=== PATIENT | male | born 1990 | race Caucasian/White ===

== ENCOUNTER 2022-06-02 11:54 | Emergency (ER) | payer OTHER, SELFPAY ==
--- NOTE | ~2022-06-02 | CT_ITS ---
EXAMINATION: CT ABDOMEN AND PELVIS WITHOUT CONTRAST CLINICAL INFORMATION: Left lower quadrant abdominal pain, nausea and vomiting. Left flank pain. Rule out kidney stones COMPARISON: None TECHNIQUE: Multidetector volumetric imaging was performed from the superior aspect of the liver through the pubic symphysis. Sagittal and coronal reformatted images were obtained on the technologist's workstation. This CT examination was performed using dose optimization techniques as appropriate, variously including the following: *Automated exposure control *Adjustment of mA and/or kV according to patient size (this includes techniques or standardized protocols for targeted exams where dose is matched to indication/reason for exam; i.e. extremities or head) *Use of iterative reconstruction technique DLP: 487 mGy-cm FINDINGS: LUNG BASES: Calcified granuloma seen at the right lung base as well as scarring at the right lung base. LIVER, GALLBLADDER, AND BILIARY TREE: The liver is normal in size, shape, and attenuation. No focal hepatic lesion or biliary ductal dilatation is present. The gallbladder is unremarkable with no evidence of radiopaque gallstones, gallbladder wall thickening, or obvious pericholecystic inflammatory changes. PANCREAS: Unremarkable. SPLEEN: Unremarkable. ADRENAL GLANDS: Unremarkable. KIDNEYS AND URETERS: Right kidney is unremarkable. There is mild hydroureteronephrosis on the left secondary to obstruction of proximal left ureter by 0.3 x 0.4 cm stone, visualized on image 37 series 3 BLADDER: Unremarkable. GASTROINTESTINAL TRACT: The small and large bowel are unremarkable. The appendix is unremarkable, retrocecal. ABDOMINAL WALL: No significant hernia is appreciated. LYMPH NODES: Normal. VASCULAR: Unremarkable PELVIC VISCERA: Unremarkable. OSSEOUS STRUCTURES: There is mild dextroscoliosis and straightening of lumbar lordosis CT/CT abdomen pelvis wo IV con IMPRESSION: 1. Obstructing stone in proximal left ureter with mild hydroureteronephrosis. 2. Calcified granuloma at the right lung base and scarring at the right lung base. Fleischner guidelines were followed.
[2022-06-02 12:09] VITALS: BP 148/64; PULSE 59; RESP 16; TEMP 37; O2SAT 98; BMI 27.4
[2022-06-02 12:37] LABS: MANUAL DIFF FLAG NO
[2022-06-02 12:42] LABS: Basophils Percent Auto 0.3 % (0-2); Eosinophils Absolute Auto 0.4 X10*3/uL (0.0-0.4); Eosinophils Percent Auto 3.4 % (0-4); Hematocrit 41.9 % (42.0-52.0); Hemoglobin 14.2 g/dl (14.0-18.0); Imm Gran Abs Auto 0.03 X10*3/uL (0.00-0.03); Imm Gran Pct Auto 0.3 % (0.0-0.4); Lymphocytes Absolute Auto 2.7 X10*3/uL (1.2-4.9); Lymphocytes Percent Auto 26.6 % (20-40); Mean Corpuscular HGB Conc 33.9 g/dl (31.0-36.0); Mean Corpuscular Hemoglobin 29.4 pg (27.0-33.0); Mean Corpuscular Volume 86.7 fL (80.0-98.0); Monocytes Absolute Auto 0.9 X10*3/uL (0.1-1.2); Monocytes Percent Auto 8.4 % (2-11); Neutrophils Absolute Auto 6.2 x10*3/uL (2.0-8.3); Platelet Count 291 X10*3/uL (160-400); Red Blood Count 4.83 X10*6/uL (4.60-5.80); White Blood Count 10.2 X10*3/uL (4.8-10.8)
[2022-06-02 13:04] LABS: Alanine Aminotransferase 36 U/L (0-40); Albumin Level 4.6 g/dL (3.5-5.0); Alkaline Phosphatase 78 U/L (39-117); Anion Gap 16 (12-20); Aspartate Amino Transferase 45 U/L (5-37); Bilirubin Total 1.2 mg/dL (0.0-1.0); Blood Urea Nitrogen 21 mg/dL (9-16); Calcium 9.6 mg/dL (8.4-10.2); Carbon Dioxide 28 mmol/L (22-29); Chloride 101 mmol/L (96-108); Creatinine Clr Calc Pharmacy 104.9; Estimated Glomerular Filt Rate > 60; Glucose Random 134 mg/dL (60-115); Lipase 32 U/L (8-78); Sodium 140 mmol/L (135-145); Total Protein 7.1 g/dL (6.5-8.0)
[2022-06-02] MEDS: Ondansetron ODT 4 MG TAB.RAPDIS TRANSLINGU (13:29)
--- NOTE | 2022-06-02 13:54 | ED_ITS ---
HPI - Abdominal Pain General Chief Complaint: Abdominal Pain Stated Complaint: Abd pain Time Seen by Provider: 06/02/22 14:21 Related Data Previous Rx's Medication Instructions Recorded oxycodone-acetaminophen 5 mg-325 1 - 2 tab PO Q4H PRN pain, 06/02/22 mg tablet (Percocet) moderate #10 tabs oxycodone 5 mg tablet 5 mg PO Q6H PRN pain #20 tabs 06/04/22 tamsulosin 0.4 mg capsule (Flomax) 0.4 mg PO BEDTIME #7 caps 06/04/22 prednisone 20 mg tablet 20 mg PO DAILY 5 days #5 tabs 06/05/22 Allergies Allergy/AdvReac Type Severity Reaction Status Date / Time No Known Allergies Allergy Verified 06/02/22 12:12 Physical Exam ED Vital Signs: Vital Signs - 24 hr 06/02/22 12:09 Temperature 98.6 F Pulse Rate 59 Respiratory Rate 16 Blood Pressure 148/64 H Pulse Oximetry 98 Oxygen Delivery Method Room Air BMI result Body Mass Index 27.4 Course Reevaluation(s) Reevaluation #1: 32yoM presenting to the ED c c/o of LLQ abd pain c associated gen weakness/nausea and fatigue. Denies ETOH usage or HLD. - Labs reviewed elevated Long. Otherwise all other labs WNL. - Plan: Will obtain CT scan abd/pelvis without IV contrast. Pt back to [facility]. Pt stable. Time: 13:54 Medications Administered Discontinued Medications Generic Name Dose Route Start Last Admin Trade Name Freq PRN Reason Stop Dose Admin Ketorolac Tromethamine 15 mg 06/02/22 14:41 06/02/22 14:45 Ketorolac Tromethamine 15 Mg/Ml Vial IVPUSH 06/02/22 14:42 15 mg ONCE ONE Administration Morphine Sulfate 2 mg 06/02/22 14:41 06/02/22 14:44 Morphine Sulfate 2 Mg/Ml Cartridge IVPUSH 06/02/22 14:42 2 mg ONCE ONE Administration Protocol Morphine Sulfate 4 mg 06/02/22 16:43 06/02/22 17:00 Morphine Sulfate 4 Mg/Ml Cartridge IVPUSH 06/02/22 16:44 4 mg ONCE ONE Administration Protocol Ondansetron HCl 4 mg 06/02/22 13:23 06/02/22 13:29 Ondansetron Odt 4 Mg Tab.Rapdis TRANSLINGU 06/02/22 13:24 4 mg ONCE ONE Administration Oxycodone HCl 10 mg 06/02/22 21:59 06/02/22 22:04 Oxycodone Hcl Immed Release 5 Mg Tablet PO 06/02/22 22:00 10 mg ONCE ONE Administration MDM - Abdominal Pain Lab Data Result diagrams: 06/02/22 12:33 06/02/22 12:33 Labs: Lab Results 06/02/22 06/02/22 06/02/22 Range/Units 12:33 12:33 18:11 WBC 10.2 (4.8-10.8) X10*3/uL RBC 4.83 (4.60-5.80) X10*6/uL Hgb 14.2 (14.0-18.0) g/dl Hct 41.9 L (42.0-52.0) % MCV 86.7 (80.0-98.0) fL MCH 29.4 (27.0-33.0) pg MCHC 33.9 (31.0-36.0) g/dl RDW 12.0 (11.0-16.0) % Plt Count 291 (160-400) X10*3/uL MPV 10.0 (9.4-12.4) fL Immature Gran % (Auto) 0.3 (0.0-0.4) % Neut % (Auto) 61.0 (45-73) % Lymph % (Auto) 26.6 (20-40) % [place] % (Auto) 8.4 (2-11) % Eos % (Auto) 3.4 (0-4) % Baso % (Auto) 0.3 (0-2) % Lymph # (Auto) 2.7 (1.2-4.9) X10*3/uL [place] # (Auto) 0.9 (0.1-1.2) X10*3/uL Eos # (Auto) 0.4 (0.0-0.4) X10*3/uL Baso # (Auto) 0.0 (0.0-0.2) X10*3/uL Abs Immat Gran (auto) 0.03 (0.00-0.03) X10*3/uL Absolute Neuts (auto) 6.2 (2.0-8.3) x10*3/uL Absolute Nucleated RBC 0.000 (0.0-0.012) X10*3/uL Nucleated RBC % (auto) 0.0 (0.0-0.2) /100WBC Sodium 140 (135-145) mmol/L Potassium 5.0 (3.3-5.1) mmol/L Chloride 101 (96-108) mmol/L Carbon Dioxide 28 (22-29) mmol/L Anion Gap 16 (12-20) BUN 21 H (9-16) mg/dL Creatinine 0.97 (0.5-1.4) mg/dL Estim Creat Clear Calc 104.9 Estimated GFR > 60 Random Glucose 134 H (60-115) mg/dL Calcium 9.6 (8.4-10.2) mg/dL Magnesium 1.8 (1.6-2.6) mg/dL Total Bilirubin 1.2 H (0.0-1.0) mg/dL AST 45 H (5-37) U/L ALT 36 (0-40) U/L Alkaline Phosphatase 78 (39-117) U/L Total Protein 7.1 (6.5-8.0) g/dL Albumin 4.6 (3.5-5.0) g/dL Lipase 32 (8-78) U/L Urine Color Dark Yellow Urine Appearance Clear Urine pH 6.5 (5.0-9.0) Ur Specific [place] 1.020 (1.005-1.025) Urine Protein 30 (1+) H (Neg-Trace) mg/dL Urine Glucose (UA) Negative (Negative) mg/dL Urine Ketones 15 (Negative) mg/dL Urine Blood Large (3+) H (Negative) Urine Nitrite Negative (Negative) Ur Leukocyte Esterase Trace H (Negative) Urine RBC >20 H (0-2) /HPF Urine WBC 0-5 (0-5) /HPF Ur Squamous Epith Cells 0-2 (0-2) /HPF Urine Bacteria None Seen (None Seen) Hyaline Casts 0-2 (0-2) /LPF Urine Opiates Screen (Not Detect) Urine Fentanyl Screen (Not Detect) Ur Barbiturates Screen (Not Detect) Ur Phencyclidine Scrn (Not Detect) Ur Amphetamines Screen (Not Detect) U Benzodiazepines Scrn (Not Detect) Urine Cocaine Screen (Not Detect) U Marijuana (THC) Screen (Not Detect) 06/02/22 Range/Units 18:11 WBC (4.8-10.8) X10*3/uL RBC (4.60-5.80) X10*6/uL Hgb (14.0-18.0) g/dl Hct (42.0-52.0) % MCV (80.0-98.0) fL MCH (27.0-33.0) pg MCHC (31.0-36.0) g/dl RDW (11.0-16.0) % Plt Count (160-400) X10*3/uL MPV (9.4-12.4) fL Immature Gran % (Auto) (0.0-0.4) % Neut % (Auto) (45-73) % Lymph % (Auto) (20-40) % [place] % (Auto) (2-11) % Eos % (Auto) (0-4) % Baso % (Auto) (0-2) % Lymph # (Auto) (1.2-4.9) X10*3/uL [place] # (Auto) (0.1-1.2) X10*3/uL Eos # (Auto) (0.0-0.4) X10*3/uL Baso # (Auto) (0.0-0.2) X10*3/uL Abs Immat Gran (auto) (0.00-0.03) X10*3/uL Absolute Neuts (auto) (2.0-8.3) x10*3/uL Absolute Nucleated RBC (0.0-0.012) X10*3/uL Nucleated RBC % (auto) (0.0-0.2) /100WBC Sodium (135-145) mmol/L Potassium (3.3-5.1) mmol/L Chloride (96-108) mmol/L Carbon Dioxide (22-29) mmol/L Anion Gap (12-20) BUN (9-16) mg/dL Creatinine (0.5-1.4) mg/dL Estim Creat Clear Calc Estimated GFR Random Glucose (60-115) mg/dL Calcium (8.4-10.2) mg/dL Magnesium (1.6-2.6) mg/dL Total Bilirubin (0.0-1.0) mg/dL AST (5-37) U/L ALT (0-40) U/L Alkaline Phosphatase (39-117) U/L Total Protein (6.5-8.0) g/dL Albumin (3.5-5.0) g/dL Lipase (8-78) U/L Urine Color Urine Appearance Urine pH (5.0-9.0) Ur Specific [place] (1.005-1.025) Urine Protein (Neg-Trace) mg/dL Urine Glucose (UA) (Negative) mg/dL Urine Ketones (Negative) mg/dL Urine Blood (Negative) Urine Nitrite (Negative) Ur Leukocyte Esterase (Negative) Urine RBC (0-2) /HPF Urine WBC (0-5) /HPF Ur Squamous Epith Cells (0-2) /HPF Urine Bacteria (None Seen) Hyaline Casts (0-2) /LPF Urine Opiates Screen POSITIVE H (Not Detect) Urine Fentanyl Screen Not Detected (Not Detect) Ur Barbiturates Screen Not Detected (Not Detect) Ur Phencyclidine Scrn Not Detected (Not Detect) Ur Amphetamines Screen Not Detected (Not Detect) U Benzodiazepines Scrn Not Detected (Not Detect) Urine Cocaine Screen Not Detected (Not Detect) U Marijuana (THC) Screen Not Detected (Not Detect) Discharge Plan Discharge Clinical Impression: Acute flank pain, Calculus, ureteral Patient Disposition: Home, Self-Care Instructions: How to Strain Your Urine (ED), Ureteral Stones (ED) Additional Instructions: may take ibuprofen 600 mg. every 6 hours. Prescriptions: New oxycodone-acetaminophen [Percocet] 5-325 mg tablet 1 - 2 tab PO Q4H PRN (Reason: pain, moderate) Qty: 10 0RF Rx Instructions: Partial Fill upon patient request. No Action prednisone 20 mg tablet 20 mg PO DAILY 5 Days Qty: 5 0RF oxycodone 5 mg tablet 5 mg PO Q6H PRN (Reason: pain) Qty: 20 0RF Rx Instructions: Partial Fill upon patient request. tamsulosin [Flomax] 0.4 mg capsule 0.4 mg PO BEDTIME Qty: 7 0RF Interventions: ED Discharge Assessment Last Done: 06/02/22 22:22 Discharge Date/Time: 06/02/22 22:05
[2022-06-02 14:32] LABS: Magnesium 1.8 mg/dL (1.6-2.6)
--- NOTE | 2022-06-02 14:43 | ED_ITS ---
HPI - Abdominal Pain General Chief Complaint: Abdominal Pain Stated Complaint: Abd pain Time Seen by Provider: 06/02/22 14:21 Source: patient Mode of arrival: ambulatory Limitations: no limitations History of Present Illness HPI narrative: 32-year-old male came in for evaluation of left-sided abdominal pain. Left-sided abdominal pain started since 10:00, pain is described as constant severe 10/10, pain is localized to the left side of the abdomen radiated to the left flank, no aggravating factor, no relieving factor, no fever, no chills, patient did not urinate since morning. No fever, no chills Related Data Allergies Allergy/AdvReac Type Severity Reaction Status Date / Time No Known Allergies Allergy Verified 06/02/22 12:12 Review of Systems Review of Systems All other systems are reviewed and are negative Constitutional: Reports as per HPI and Reports no additional constitutional complaints Eyes: Reports as per HPI and Reports no additional eye complaints Reports system reviewed and no additional complaints, except as documented Cardiovascular: Reports as per HPI and Reports no additional cardiovascular complaints Respiratory: Reports as per HPI and Reports no additional respiratory complaints Gastrointestinal: Reports as per HPI and Reports no additional gastrointestinal complaints Genitourinary: Reports no additional female genitourinary complaints Musculoskeletal: Reports no additional musculoskeletal complaints Skin/Breast: Reports system reviewed and no additional complaints, except as docu Psychiatric: Reports no additional psychiatric complaints Endocrine: Reports no additional endocrine complaints Hematologic/Lymphatic: Reports no additional hematologic/lymphatic complaints Allergic/Immunologic: Reports no additional allergic/immunologic complaints Reports system reviewed and no additional complaints, except as documented and Reports Abnormal speech present [facility] Social History Social History Smoked in Last 30 Days: No Advance Directives: No Advance Directives Information Provided: No Physical Exam ED Vital Signs: Vital Signs - 24 hr 06/02/22 12:09 Temperature 98.6 F Pulse Rate 59 Respiratory Rate 16 Blood Pressure 148/64 H Pulse Oximetry 98 Oxygen Delivery Method Room Air BMI result Body Mass Index 27.4 Vital signs have been reviewed as appeared to be correct. Blood pressure normal. Heart rate normal. Respiration rate normal. Temperature normal. Oxygen saturation normal. Appearance: Alert. Oriented X3. No acute distress. Head: Normal external exam. Normocephalic. Atraumatic. No Yi signs noted. No raccoon eyes noted Eyes: PERRLA. EOMI. Conjunctiva and sclera normal. Eyelids normal. ENT: TM's Normal. Pharynx normal. Uvula midline. Moist mucous membranes. No trismus noted. No drooling noted. No muffled voice noted. Neck: Normal inspection. Neck supple. FROM. No adenopathy. Thyroid Normal. No meningeal signs. No neck mass noted. CVS: Normal heart rate and rhythm. Heart sound normal. No murmurs noted. Pulses normal throughout. Respiratory: No respiratory distress. Painless inspiration. Breath sounds normal. No wheezes/rales/rhonchi noted. Chest nontender. No accessory muscle usage noted or decreased air movement noted. Abdomen: Soft, left abdominal tenderness, no guarding, no rebound tenderness.. Bowel sounds normal in all 4 quadrants. No distention noted. No organomegaly noted. No visible injury noted. Back: Left CVA tenderness. Full range of motion noted. Skin: Skin warm and dry. Normal skin color. Normal skin turgor. No ra shes/lesions/lacerations noted. Extremities: No lower extremity edema. Extremities exhibit normal range of motion. Extremities nontender. Neuro: Oriented X 3. Cranial nerve exam: II-XII are grossly intact No motor deficit. No sensory deficit. Reflexes normal. Course Course Course Narrative: left flank pain, CT is pending case signed out to Dr. Matt to check CT and UA then dispo accordingly. Medications Administered Discontinued Medications Generic Name Dose Route Start Last Admin Trade Name Freq PRN Reason Stop Dose Admin Ketorolac Tromethamine 15 mg 06/02/22 14:41 06/02/22 14:45 Ketorolac Tromethamine 15 Mg/Ml Vial IVPUSH 06/02/22 14:42 15 mg ONCE ONE Administration Morphine Sulfate 2 mg 06/02/22 14:41 06/02/22 14:44 Morphine Sulfate 2 Mg/Ml Cartridge IVPUSH 06/02/22 14:42 2 mg ONCE ONE Administration Protocol Ondansetron HCl 4 mg 06/02/22 13:23 06/02/22 13:29 Ondansetron Odt 4 Mg Tab.Rapdis TRANSLINGU 06/02/22 13:24 4 mg ONCE ONE Administration MDM - Abdominal Pain Lab Data Result diagrams: 06/02/22 12:33 06/02/22 12:33 Labs: Lab Results 06/02/22 06/02/22 Range/Units 12:33 12:33 WBC 10.2 (4.8-10.8) X10*3/uL RBC 4.83 (4.60-5.80) X10*6/uL Hgb 14.2 (14.0-18.0) g/dl Hct 41.9 L (42.0-52.0) % MCV 86.7 (80.0-98.0) fL MCH 29.4 (27.0-33.0) pg MCHC 33.9 (31.0-36.0) g/dl RDW 12.0 (11.0-16.0) % Plt Count 291 (160-400) X10*3/uL MPV 10.0 (9.4-12.4) fL Immature Gran % (Auto) 0.3 (0.0-0.4) % Neut % (Auto) 61.0 (45-73) % Lymph % (Auto) 26.6 (20-40) % [place] % (Auto) 8.4 (2-11) % Eos % (Auto) 3.4 (0-4) % Baso % (Auto) 0.3 (0-2) % Lymph # (Auto) 2.7 (1.2-4.9) X10*3/uL [place] # (Auto) 0.9 (0.1-1.2) X10*3/uL Eos # (Auto) 0.4 (0.0-0.4) X10*3/uL Baso # (Auto) 0.0 (0.0-0.2) X10*3/uL Abs Immat Gran (auto) 0.03 (0.00-0.03) X10*3/uL Absolute Neuts (auto) 6.2 (2.0-8.3) x10*3/uL Absolute Nucleated RBC 0.000 (0.0-0.012) X10*3/uL Nucleated RBC % (auto) 0.0 (0.0-0.2) /100WBC Sodium 140 (135-145) mmol/L Potassium 5.0 (3.3-5.1) mmol/L Chloride 101 (96-108) mmol/L Carbon Dioxide 28 (22-29) mmol/L Anion Gap 16 (12-20) BUN 21 H (9-16) mg/dL Creatinine 0.97 (0.5-1.4) mg/dL Estim Creat Clear Calc 104.9 Estimated GFR > 60 Random Glucose 134 H (60-115) mg/dL Calcium 9.6 (8.4-10.2) mg/dL Magnesium 1.8 (1.6-2.6) mg/dL Total Bilirubin 1.2 H (0.0-1.0) mg/dL AST 45 H (5-37) U/L ALT 36 (0-40) U/L Alkaline Phosphatase 78 (39-117) U/L Total Protein 7.1 (6.5-8.0) g/dL Albumin 4.6 (3.5-5.0) g/dL Lipase 32 (8-78) U/L Discharge Plan Discharge Clinical Impression: Acute flank pain
[2022-06-02] MEDS: Morphine Sulfate 2 MG/ML CARTRIDGE IVPUSH (14:44)
[2022-06-02] MEDS: Ketorolac Tromethamine 15 MG/ML VIAL IVPUSH (14:45)
--- NOTE | 2022-06-02 14:58 | PC.NURSE ---
patient a/ox4 . maryedwintyrel . heart rate regular at 65 beats minute . lungs clear throughout . skin pink warm and dry . abdomen soft . positive bowel sounds noted in all four quadrant sounds . rebound tenderness noted in left lower , radiating to flank pain level 10 out of 10 that is intermittent. Patient reports that this started at 1030am all of a sudden he felt this pain start . Labs have been sent . IV placed in right A.C . patient has been medicated with morphine and toridal as ordered by provider . patient transported to C.T for images . patient aware of plan of care .
[2022-06-02 17:00] VITALS: RESP 18
[2022-06-02] MEDS: Morphine Sulfate 4 MG/ML CARTRIDGE IVPUSH (17:00)
[2022-06-02 17:01] VITALS: BP 151/68; PULSE 72; RESP 16; TEMP 36.9; O2SAT 98
--- NOTE | 2022-06-02 17:09 | PC.NURSE ---
patient reports pain level of 10 out of 10 in left abdomen / flank area obtained order from Dr. Matt for PRN of 4mg Morphin IVP . Patient medicated as ordered by provider . patient aware of plan of care .
--- NOTE | 2022-06-02 18:14 | PC.NURSE ---
Patient reports improvement in abdominal /flank pain after being medicated . Urine obtained and sent . Patient aware of plan of care .
[2022-06-02 18:30] LABS: Amphetamine Screen Urine Not Detected (Not Detect); Barbiturates, Urine Not Detected (Not Detect); Benzodiazepines Screen Urine Not Detected (Not Detect); Cannabinoid Screen Urine Not Detected (Not Detect); Cocaine Screen Urine Not Detected (Not Detect); Fentanyl, urine Not Detected (Not Detect); Opiate Screen Urine POSITIVE (Not Detect); Phencyclidine Screen Urine Not Detected (Not Detect)
[2022-06-02 18:34] LABS: Appearance Urine Clear; Color Urine Dark Yellow; Glucose Urine UA Negative (Negative); Leukocyte Esterase Urine Trace (Negative); Nitrite Urine Negative (Negative); PH 6.5 (5.0-9.0); UMIC TRIGGER UACC YES; Urine Blood Large (3+) (Negative); Urine Ketones 15 mg/dL (Negative); Urine Protein 30 (1+) mg/dL (Neg-Trace)
[2022-06-02 19:00] LABS: Bacteria Urine None Seen (None Seen); Hyaline Casts Urine 0-2 /LPF (0-2); RBC Urine >20 /HPF (0-2); Squamous Epithelial Cell Urine 0-2 /HPF (0-2); WBC Urine 0-5 /HPF (0-5)
[2022-06-02] MEDS: oxyCODONE HCl Immed Release 5 MG TABLET 10 MG PO (22:04)
== END 2022-06-02 22:05 | disposition home or self-care (01) ==
PROVIDERS: Physician Assistant Medical; Emergency Provider Emergency Medicine
DX: N13.2 Hydronephrosis with renal and ureteral calculous obstruction (principal)
CPT/HCPCS: 36415; 74176; 80053; 80307; 81001; 83690; 83735; 85025; 96374; 96375; 99284; J1885; J2270

== ENCOUNTER 2022-06-04 18:00 | Emergency (ER) | payer OTHER, SELFPAY ==
[2022-06-04 18:43] VITALS: BP 171/65; PULSE 59; RESP 18; TEMP 37.1; O2SAT 99; BMI 27.4
--- NOTE | 2022-06-04 18:43 | ED_ITS ---
HPI - General Adult General Chief complaint: General Medical <Yael Levin MD - Last Filed: 06/04/22 18:49> Stated complaint: kidney stone <Yael Levin MD - Last Filed: 06/04/22 18:49> Time Seen by Provider: 06/04/22 21:53 <Yael Levin MD - Last Filed: 06/04/22 18:49> Source: patient <Ed Guerra MD - Last Filed: 06/04/22 23:55> Mode of arrival: ambulatory <Ed Guerra MD - Last Filed: 06/04/22 23:55> Limitations: no limitations <Ed Guerra MD - Last Filed: 06/04/22 23:55> History of Present Illness HPI narrative: Patient was seen here 2 days ago for left flank pain diagnosis 3 x 4 mm proximal ureteric stone with hydronephrosis comes back as pain is still going on fell nauseated taking oxycodone which he finished patient never had kidney stone before <Ed Guerra MD - Last Filed: 06/04/22 23:55> Related Data Home medications: Previous Rx's Medication Instructions Recorded oxycodone-acetaminophen 5 mg-325 1 - 2 tab PO Q4H PRN pain, 06/02/22 mg tablet (Percocet) moderate #10 tabs oxycodone 5 mg tablet 5 mg PO Q6H PRN pain #20 tabs 06/04/22 tamsulosin 0.4 mg capsule (Flomax) 0.4 mg PO BEDTIME #7 caps 06/04/22 <Yael Levin MD - Last Filed: 06/04/22 18:49> Allergies/adverse reactions: Allergies Allergy/AdvReac Type Severity Reaction Status Date / Time No Known Allergies Allergy Verified 06/02/22 12:12 <Yael Levin MD - Last Filed: 06/04/22 18:49> Review of Systems Review of Systems: Yes all other systems are reviewed and are negative <Ed Guerra MD - Last Filed: 06/04/22 23:55> PMFSH Social History Social History: Social History Advance Directives: No Advance Directives Information Provided: No <Yael Levin MD - Last Filed: 06/04/22 18:49> Physical Exam ED Vital Signs: Vital Signs - 24 hr 06/04/22 18:43 06/04/22 22:22 Temperature 98.8 F 99.1 F Pulse Rate 59 58 Respiratory Rate 18 16 Blood Pressure 171/65 H 121/65 Pulse Oximetry 99 97 Oxygen Delivery Method Room Air Room Air BMI result Body Mass Index 27.4 <Yael Levin MD - Last Filed: 06/04/22 18:49> Vital Signs - 24 hr 06/04/22 18:43 06/04/22 22:22 Temperature 98.8 F 99.1 F Pulse Rate 59 58 Respiratory Rate 18 16 Blood Pressure 171/65 H 121/65 Pulse Oximetry 99 97 Oxygen Delivery Method Room Air Room Air BMI result Body Mass Index 27.4 <Ed Guerra MD - Last Filed: 06/04/22 23:55> Appearance: Alert. Oriented X3. No acute distress. ENT: Pharynx normal. Oral Mucosa moist Neck: Normal inspection. Neck supple. CVS: Normal heart rate and rhythm. Pulses normal. Respiratory: No respiratory distress. Equal air entry bilateral, no wheezing/rales/rhonchi Abdomen: Soft and nontender. Bowel sounds are present, no mass palpable, L CVA tenderness Skin: Skin warm and dry. Normal skin color. Normal skin turgor. Extremities: No lower extremity edema. No calf tenderness Neuro: Oriented X 3. No motor deficit. <Ed Guerra MD - Last Filed: 06/04/22 23:55> Course Course Course Narrative: -triage TAMY: -2 days of kidney stone pain, seen here 2 days ago, ran out of oxycodone, no hematuria, no fever -CT 2 days ago: : KIDNEYS AND URETERS: Right kidney is unremarkable. There is mild hydroureteronephrosis on the left secondary to obstruction of proximal left ureter by 0.3 x 0.4 cm stone -pt did not get rx for Flomax -f/u labs -at this time pt declined pain meds, states he recently took oxycodone <Yael Levin MD - Last Filed: 06/04/22 18:49> Medications Administered Discontinued Medications Generic Name Dose Route Start Last Admin Trade Name Freq PRN Reason Stop Dose Admin Oxycodone HCl 10 mg 11/14/22 22:13 06/04/22 22:35 Oxycodone Hcl Immed Release 5 Mg Tablet PO 06/04/22 22:14 10 mg ONCE ONE Administration Tamsulosin HCl 0.4 mg 06/04/22 22:13 06/04/22 22:32 Tamsulosin Hcl 0.4 Mg Capsule PO 06/04/22 22:14 0.4 mg ONCE ONE Administration <Yael Levin MD - Last Filed: 06/04/22 18:49> Medications Administered Discontinued Medications Generic Name Dose Route Start Last Admin Trade Name Javon PRN Reason Stop Dose Admin Oxycodone HCl 10 mg 06/04/22 22:13 06/04/22 22:35 Oxycodone Hcl Immed Release 5 Mg Tablet PO 06/04/22 22:14 10 mg ONCE ONE Administration Tamsulosin HCl 0.4 mg 06/04/22 22:13 06/04/22 22:32 Tamsulosin Hcl 0.4 Mg Capsule PO 06/04/22 22:14 0.4 mg ONCE ONE Administration <Ed Guerra MD - Last Filed: 06/04/22 23:55> Medical Decision Making [facility] Narrative Medical decision making narrative: Patient with left proximal 3 x 4 mm obstructive stone pain improved at this time will discharge patient home advised to follow up with urologist in a.m. <Ed Guerra MD - Last Filed: 06/04/22 23:55> Lab Data Lab results reviewed: Yes I reviewed the patient's lab results. <Ed Guerra MD - Last Filed: 06/04/22 23:55> Result diagrams: : 06/04/22 21:15 06/04/22 21:15 <Yael Levin MD - Last Filed: 06/04/22 18:49> Labs: Lab Results 06/04/22 06/04/22 06/04/22 Range/Units 18:55 21:15 21:15 WBC 17.3 H (4.8-10.8) X10*3/uL RBC 4.85 (4.60-5.80) X10*6/uL Hgb 14.2 (14.0-18.0) g/dl Hct 42.2 (42.0-52.0) % MCV 87.0 (80.0-98.0) fL MCH 29.3 (27.0-33.0) pg MCHC 33.6 (31.0-36.0) g/dl RDW 11.9 (11.0-16.0) % Plt Count 285 (160-400) X10*3/uL MPV 10.2 (9.4-12.4) fL Immature Gran % (Auto) 0.3 (0.0-0.4) % Neut % (Auto) 78.8 H (45-73) % Lymph % (Auto) 12.1 L (20-40) % [place] % (Auto) 7.9 (2-11) % Eos % (Auto) 0.7 (0-4) % Baso % (Auto) 0.2 (0-2) % Lymph # (Auto) 2.1 (1.2-4.9) X10*3/uL [place] # (Auto) 1.4 H (0.1-1.2) X10*3/uL Eos # (Auto) 0.1 (0.0-0.4) X10*3/uL Baso # (Auto) 0.0 (0.0-0.2) X10*3/uL Abs Immat Gran (auto) 0.05 H (0.00-0.03) X10*3/uL Absolute Neuts (auto) 13.6 H (2.0-8.3) x10*3/uL Absolute Nucleated RBC 0.000 (0.0-0.012) X10*3/uL Nucleated RBC % (auto) 0.0 (0.0-0.2) /100WBC Sodium 139 (135-145) mmol/L Potassium 5.1 (3.3-5.1) mmol/L Chloride 100 (96-108) mmol/L Carbon Dioxide 30 H (22-29) mmol/L Anion Gap 14 (12-20) BUN 12 (9-16) mg/dL Creatinine 1.02 (0.5-1.4) mg/dL Estim Creat Clear Calc 99.7 Estimated GFR > 60 Random Glucose 98 (60-115) mg/dL Calcium 9.9 (8.4-10.2) mg/dL Total Bilirubin 1.6 H (0.0-1.0) mg/dL Direct Bilirubin 0.5 (0.0-0.5) mg/dL AST 24 (5-37) U/L ALT 27 (0-40) U/L Alkaline Phosphatase 66 (39-117) U/L Total Protein 7.3 (6.5-8.0) g/dL Albumin 4.7 (3.5-5.0) g/dL Urine Color Yellow Urine Appearance Clear Urine pH 5.5 (5.0-9.0) Ur Specific Elizabeth <= 1.005 (1.005-1.025) Urine Protein Negative (Neg-Trace) mg/dL Urine Glucose (UA) Negative (Negative) mg/dL Urine Ketones 15 (Negative) mg/dL Urine Blood Small (1+) H (Negative) Urine Nitrite Negative (Negative) Ur Leukocyte Esterase Negative (Negative) Urine RBC 0-2 (0-2) /HPF Urine WBC 0-5 (0-5) /HPF Ur Squamous Epith Cells 0-2 (0-2) /HPF Urine Bacteria Trace (None Seen) Hyaline Casts 0-2 (0-2) /LPF <Yael Levin MD - Last Filed: 06/04/22 18:49> Lab Results 06/04/22 06/04/22 06/04/22 Range/Units 18:55 21:15 21:15 WBC 17.3 H (4.8-10.8) X10*3/uL RBC 4.85 (4.60-5.80) X10*6/uL Hgb 14.2 (14.0-18.0) g/dl Hct 42.2 (42.0-52.0) % MCV 87.0 (80.0-98.0) fL MCH 29.3 (27.0-33.0) pg MCHC 33.6 (31.0-36.0) g/dl RDW 11.9 (11.0-16.0) % Plt Count 285 (160-400) X10*3/uL MPV 10.2 (9.4-12.4) fL Immature Gran % (Auto) 0.3 (0.0-0.4) % Neut % (Auto) 78.8 H (45-73) % Lymph % (Auto) 12.1 L (20-40) % [place] % (Auto) 7.9 (2-11) % Eos % (Auto) 0.7 (0-4) % Baso % (Auto) 0.2 (0-2) % Lymph # (Auto) 2.1 (1.2-4.9) X10*3/uL [place] # (Auto) 1.4 H (0.1-1.2) X10*3/uL Eos # (Auto) 0.1 (0.0-0.4) X10*3/uL Baso # (Auto) 0.0 (0.0-0.2) X10*3/uL Abs Immat Gran (auto) 0.05 H (0.00-0.03) X10*3/uL Absolute Neuts (auto) 13.6 H (2.0-8.3) x10*3/uL Absolute Nucleated RBC 0.000 (0.0-0.012) X10*3/uL Nucleated RBC % (auto) 0.0 (0.0-0.2) /100WBC Sodium 139 (135-145) mmol/L Potassium 5.1 (3.3-5.1) mmol/L Chloride 100 (96-108) mmol/L Carbon Dioxide 30 H (22-29) mmol/L Anion Gap 14 (12-20) BUN 12 (9-16) mg/dL Creatinine 1.02 (0.5-1.4) mg/dL Estim Creat Clear Calc 99.7 Estimated GFR > 60 Random Glucose 98 (60-115) mg/dL Calcium 9.9 (8.4-10.2) mg/dL Total Bilirubin 1.6 H (0.0-1.0) mg/dL Direct Bilirubin 0.5 (0.0-0.5) mg/dL AST 24 (5-37) U/L ALT 27 (0-40) U/L Alkaline Phosphatase 66 (39-117) U/L Total Protein 7.3 (6.5-8.0) g/dL Albumin 4.7 (3.5-5.0) g/dL Urine Color Yellow Urine Appearance Clear Urine pH 5.5 (5.0-9.0) Ur Specific Elizabeth <= 1.005 (1.005-1.025) Urine Protein Negative (Neg-Trace) mg/dL Urine Glucose (UA) Negative (Negative) mg/dL Urine Ketones 15 (Negative) mg/dL Urine Blood Small (1+) H (Negative) Urine Nitrite Negative (Negative) Ur Leukocyte Esterase Negative (Negative) Urine RBC 0-2 (0-2) /HPF Urine WBC 0-5 (0-5) /HPF Ur Squamous Epith Cells 0-2 (0-2) /HPF Urine Bacteria Trace (None Seen) Hyaline Casts 0-2 (0-2) /LPF <Ed Guerra MD - Last Filed: 06/04/22 23:55> Discharge Plan Discharge Clinical Impression: Kidney stone on left side <Yael Levin MD - Last Filed: 06/04/22 18:49> Patient Disposition: Home, Self-Care <Yael Lvein MD - Last Filed: 06/04/22 18:49> Instructions: Kidney Stones (ED) <Yael Levin MD - Last Filed: 06/04/22 18:49> Additional Instructions: Drink plenty of fluids Take pain medication and Flomax to keep the tube open Follow-up with urologist <Yael Levin MD - Last Filed: 06/04/22 18:49> Prescriptions: New oxycodone 5 mg tablet 5 mg PO Q6H PRN (Reason: pain) Qty: 20 0RF Rx Instructions: Partial Fill upon patient request. tamsulosin [Flomax] 0.4 mg capsule 0.4 mg PO BEDTIME Qty: 7 0RF No Action oxycodone-acetaminophen [Percocet] 5-325 mg tablet 1 - 2 tab PO Q4H PRN (Reason: pain, moderate) Qty: 10 0RF Rx Instructions: Partial Fill upon patient request. <Yael Levin MD - Last Filed: 06/04/22 18:49> Referrals: Gavin Mead MD [Physician] - 1 day <Yael Levin MD - Last Filed: 06/04/22 18:49> Interventions: ED Discharge Assessment Last Done: 06/04/22 22:38 <Yael Levin MD - Last Filed: 06/04/22 18:49> Discharge Date/Time: 06/04/22 22:40 <Yael Levin MD - Last Filed: 06/04/22 18:49>
[2022-06-04 19:13] LABS: Appearance Urine Clear; Color Urine Yellow; Glucose Urine UA Negative (Negative); Leukocyte Esterase Urine Negative (Negative); Nitrite Urine Negative (Negative); PH 5.5 (5.0-9.0); Specific Gravity - Urine <= 1.005 (1.005-1.025); UMIC TRIGGER UACC YES; Urine Blood Small (1+) (Negative); Urine Ketones 15 mg/dL (Negative); Urine Protein Negative (Neg-Trace)
[2022-06-04 19:26] LABS: Bacteria Urine Trace (None Seen); Hyaline Casts Urine 0-2 /LPF (0-2); RBC Urine 0-2 /HPF (0-2); Squamous Epithelial Cell Urine 0-2 /HPF (0-2); WBC Urine 0-5 /HPF (0-5)
[2022-06-04 21:20] LABS: MANUAL DIFF FLAG NO
[2022-06-04 21:32] LABS: Basophils Percent Auto 0.2 % (0-2); Eosinophils Absolute Auto 0.1 X10*3/uL (0.0-0.4); Eosinophils Percent Auto 0.7 % (0-4); Hematocrit 42.2 % (42.0-52.0); Hemoglobin 14.2 g/dl (14.0-18.0); Imm Gran Abs Auto 0.05 X10*3/uL (0.00-0.03); Imm Gran Pct Auto 0.3 % (0.0-0.4); Lymphocytes Absolute Auto 2.1 X10*3/uL (1.2-4.9); Lymphocytes Percent Auto 12.1 % (20-40); Mean Corpuscular HGB Conc 33.6 g/dl (31.0-36.0); Mean Corpuscular Hemoglobin 29.3 pg (27.0-33.0); Mean Platelet Volume 10.2 fL (9.4-12.4); Monocytes Absolute Auto 1.4 X10*3/uL (0.1-1.2); Monocytes Percent Auto 7.9 % (2-11); Neutrophils Absolute Auto 13.6 x10*3/uL (2.0-8.3); Neutrophils Percent Auto 78.8 % (45-73); Platelet Count 285 X10*3/uL (160-400); Red Blood Count 4.85 X10*6/uL (4.60-5.80); Red Cell Distribution Width 11.9 % (11.0-16.0); White Blood Count 17.3 X10*3/uL (4.8-10.8)
[2022-06-04 21:41] LABS: Alanine Aminotransferase 27 U/L (0-40); Albumin Level 4.7 g/dL (3.5-5.0); Alkaline Phosphatase 66 U/L (39-117); Anion Gap 14 (12-20); Aspartate Amino Transferase 24 U/L (5-37); Bilirubin Direct 0.5 mg/dL (0.0-0.5); Bilirubin Total 1.6 mg/dL (0.0-1.0); Blood Urea Nitrogen 12 mg/dL (9-16); Calcium 9.9 mg/dL (8.4-10.2); Carbon Dioxide 30 mmol/L (22-29); Chloride 100 mmol/L (96-108); Creatinine Clr Calc Pharmacy 99.7; Estimated Glomerular Filt Rate > 60; Glucose Random 98 mg/dL (60-115); Potassium 5.1 mmol/L (3.3-5.1); Sodium 139 mmol/L (135-145); Total Protein 7.3 g/dL (6.5-8.0)
[2022-06-04 22:22] VITALS: BP 121/65; PULSE 58; RESP 16; TEMP 37.3; O2SAT 97
[2022-06-04] MEDS: Tamsulosin HCL 0.4 MG CAPSULE PO (22:32)
[2022-06-04] MEDS: oxyCODONE HCl Immed Release 5 MG TABLET 10 MG PO (22:35)
== END 2022-06-04 22:40 | disposition home or self-care (01) ==
PROVIDERS: Emergency Medicine; Emergency Provider Internal Medicine
DX: N13.2 Hydronephrosis with renal and ureteral calculous obstruction (principal)
CPT/HCPCS: 36415; 80048; 80076; 81001; 85025; 99283

== ENCOUNTER 2025-04-25 10:22 | Emergency (ER) | payer OTHER, SELFPAY ==
--- OUTSIDE RECORDS SUMMARY | 2022-05-01 15:01 | XMS_ITS | Encounter Summary ---
Author Organization [facility] Address [address] [place] [phone] Phone Care Team Providers Care Forest Pathologist Name Role Phone Stacy Falcon MD Primary Care Provider [phone] Encounter Details Date Type Department Care Team (Late st Contact Info) Description 05/01/2022 3:01 PM EDT Hospital Encounter [facility] [address] [place] [id number] Negrita David FNP [address] [place] [address] [email or web address] Social History Tobacco Use Types Packs/Day Years Used Date Smoking Tobacco: Never Smokeless Tobacco: Never Alcohol Use Standard Drinks/Week Comments Not Currently 0 (1 standard drink = 0.6 oz pur e alcohol) Education Answer Date Recorded Are you interested in more education? Not on evon e 11/15/2022 Are you concerned about learning? Not on file 11/15/2022 No 11/15/2022 No 11/15/2022 Digital Access Answer Date Recorded No 12/17/2022 No 12/17/2022 Reliable internet access at home? Not on file 12/17/2022 Device with a working camera? Not on file Intimate Partner Violence Answer Date R ecorded Are you denied basic needs s uch as food, clothing, or medical care? No 05/13/2024 In the past 12 months have y ou been in a relationship with a person who hurts, threatens, or tries to control you? No 05/13/2024 Are you denied basic needs s uch as food, clothing, or medical care? No 05/13/2024 In the past 12 months have y ou been in a relationship with a person who hurts, threatens, or tries to control you? No 05/13/2024 Sex and Gender Information Value Date Recorded Sex Assigned at Male 05/13/2024 5:36 PM EDT Legal Sex Male 7:39 PM EST Gender Identity Male 05/13/2024 5:36 PM EDT Sexual Orientation Not on file documented as of this encounter Functional Status * Calculated C-SSRS Risk Score (Lifetime/Recent) Answer Date of Assessment Author No Risk Indicated 05/13/2024 5:35 PM EDT Laura Mccray, CHLOÉ * [place] Suicide Severity Rating Scale (Screener/Recent Self-Report) Question Answer Date of Assessment Author 1. Wish to be (Past 1 Month) No 05/13/2024 5:35 PM EDT Laura Mccray, CHLOÉ 2. Non-Specific Active Suici bryan Thoughts (Past 1 Month) No 05/13/2024 5:35 PM EDT Laura Mccray, CHLOÉ 6. Suicidal Behavior (Lifetime) No 5:35 PM EDT Laura Mccray, CHLOÉ documented as of this encounter Plan of Treatment Not on file documented as of this encounter Procedures Procedure Name Priority Date/Time Associated Diagnosis Comments XR CHEST PA AND LATERAL 2 VIEWS Urgent/patient waiting 05/01/2022 3:06 PM EDT Mild intermittent asthma with exacerbation documented in this encounter Results * XR CHEST PA AND LATERAL 2 VIEWS (05/01/2022 3:06 PM EDT) Anatomical Region Laterality Modality Chest Computed Radiogr aphy 05/01/2022 3:09 PM EDT Impressions 05/01/2022 3:21 PM EDT No acute abnormality. ATTESTATION: I, Rosalee Bull as teaching physician, have reviewed the images for this case and if necessary edited the report originally created by Thomas Hernandez. Narrative 05/01/2022 3:21 PM EDT XR CHEST PA AND LATERAL 2 VIEWS COMPARISON: [facility] PORTABLE CHEST D105 FINDINGS: Devices/Tubes/Lines: None. Lungs: The lungs are clear. No focal consolidation or pulmonary edema. Pleura: No pleural effusion or pneumothorax. Heart/Mediastinum: The heart and mediastinum are normal. Bones/Soft Tissues: No significant skeletal abnormality. Procedure Note Rosalee Bull MD - 05/01/2022 XR CHEST PA AND LATERAL 2 VIEWS COMPARISON: [facility] PORTABLE CHEST D105 FINDINGS: Devices/Tubes/Lines: None. Lungs: The lungs are clear. No focal consolidation or pulmonary edema. Pleura: No pleural effusion or pneumothorax. Heart/Mediastinum: The heart and mediastinum are normal. Bones/Soft Tissues: No significant skeletal abnormality. IMPRESSION: No acute abnormality. ATTESTATION: I, Rosalee Bull as teaching physician, have reviewed theimages for this case and if necessary edited the report originally createdby Thomas Hernandez. Negrita David PREMISES TECHNICIAN IMG XR CHEST Final Resul t documented in this encounter Visit Diagnoses Not on filedocumented in this encounter Additional Health Concerns Infection Onset Date Last Indicated Resolved Time CoV-Risk 05/01/2022 05/01/2022 05/12/2022 1:22 AM EDT documented as of this encounter Care Teams Forest Pathologist Relationship Specialty Start Date End Date Stacy Falcon MD PCP - General 11/25/14 04/03/24 documented as of this encounter Additional Source Comments The information contained in this document represents components of the legal health record. It is not the complete legal health record.[facility]
--- OUTSIDE RECORDS SUMMARY | 2022-12-05 14:19 | XMS_ITS | Encounter Summary ---
Author Organization [facility] Address [address] [facility] [facility] [address] [place] [phone] Phone Care Team Providers Care Burr Bench Hand Name Role Phone Stacy Falcon MD Primary Care Provider [phone] Encounter Details Date Type Department Care Team (Late st Contact Info) Description 12/05/2022 2:19 PM EDT Hospital Encounter [facility] [address] [place] [id number] Pam Benjamin CNP [address] [place] [id number] Social History Tobacco Use Types Packs/Day Years [...] 5:35 PM EDT Laura Mccray, CHLOÉ * [place] Suicide Severity Rating Scale (Screener/Recent Self-Report) Question [...] PA AND LATERAL 2 VIEWS Urgent/patient waiting 12/05/2022 2:23 PM EDT Shortness of breath documented in this encounter Results * XR CHEST PA AND LATERAL 2 VIEWS (12/05/2022 2:23 PM EDT) Anatomical Region Laterality Modality Chest Computed Radiogr aphy 12/05/2022 2:44 PM EDT Impressions 12/05/2022 2:50 PM EDT No acute abnormality. ATTESTATION: I, Dr. Camille Burroughs as teaching physician, have reviewed the images for this case and if necessary edited the report originally created by [employer] [place]. Narrative 12/05/2022 2:50 PM EDT XR CHEST PA AND LATERAL 2 VIEWS COMPARISON: XR CHEST PA AND LATERAL 2 VIEWS FINDINGS: Devices/Tubes/Lines: None. Lungs: The lungs are clear. No focal consolidation or pulmonary edema. Pleura: No pleural effusion or pneumothorax. Heart/Mediastinum: Normal heart and mediastinum. Bones/Soft Tissues: No displaced rib fractures. Procedure Note Camille Burroughs MD - 12/05/2022 XR CHEST PA AND LATERAL 2 VIEWS COMPARISON: XR CHEST PA AND LATERAL 2 VIEWS FINDINGS: Devices/Tubes/Lines: None. Lungs: The lungs are clear. No focal consolidation or pulmonary edema. Pleura: No pleural effusion or pneumothorax. Heart/Mediastinum: Normal heart and mediastinum. Bones/Soft Tissues: No displaced rib fractures. IMPRESSION: No acute abnormality. ATTESTATION: I, Dr. Camille Burroughs as teaching physician, have reviewedthe images for this case and if necessary edited the report originallycreated by [employer] [place]. Pam Benjamin PROFESSOR OF MANAGEMENT IMG XR CHEST Final Resul t documented in this encounter Visit Diagnoses Not on filedocumented in this encounter Care Teams Burr Bench Hand Relationship Specialty Start Date End Date Stacy Falcon MD PCP - General 11/25/14 04/03/24 documented as of this encounter Additional Source Comments The information contained in this document represents components of the legal health record. It is not the complete legal health record.[facility]
[2025-04-25 10:26] VITALS: BP 156/91; PULSE 68; RESP 16; TEMP 36.2; O2SAT 99; BMI 25.0
[2025-04-25 10:47] VITALS: BP 156/91; PULSE 68; RESP 16; TEMP 36.2; O2SAT 99
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
[2025-04-25] MEDS: Tetracaine HCl/PF 0.5% Oph Sol 4 ML DROPS 3 DROP EYE-LEFT (11:00)
--- OUTSIDE RECORDS SUMMARY | 2025-04-25 11:15 | XMS_ITS | Encounter Summary ---
Author Organization [facility] Address [address] [place] [address] Phone Care Team Providers Care Chief Media Officer Name Role Phone Stacy Falcon MD Primary Care Provider [phone] Shireen Fay Primary Care Provider [phone] Encounter Details Date Type Department Care Team (Latest Contact Info) Description 07/03/2022 Transcribe Orders Virtual Department [address] [place] [id number] Shashank Freedman MD [address] [place] [address], [place] [address] [email or web address] Calculus of kidney (Primary Dx) Social History Tobacco Use Types Packs/Day Years Used Date Smoking Tobacco: Never Smokeless Tobacco: Never Alcohol Use Standard Drinks/Week Comments Not Currently 0 (1 standard drink = 0.6 oz pur e alcohol) Sex and Gender Information Value Date Recorded Sex Assigned at Male 05/13/2024 5:36 PM EDT Legal Sex Male 7:39 PM EST Gender Identity Male 05/13/2024 5:36 PM EDT Sexual Orientation Not on file documented as of this encounter Plan of Treatment Not on file documented as of this encounter Results * US Kidneys and Bladder (07/24/2022 11:02 AM EST) Anatomical Region Laterality Modality Abdomen, Kidney Ultrasound 07/24/2022 2:00 PM EST Impressions 07/24/2022 2:09 PM EST 1. No hydronephrosis or calculus demonstrated sonographically 2. Post void residual volume of 80 mL Narrative 07/24/2022 2:09 PM EST US KIDNEYS AND BLADDER TECHNIQUE: Kidney Ultrasound. COMPARISON: There is no prior study available for FINDINGS: Right Kidney: Size: 12.5 cm Normal corticomedullary differentiation and cortical thickness. No stones or hydronephrosis. Left Kidney: Size: 12 point cm Normal corticomedullary differentiation and cortical thickness. No stones or hydronephrosis. There is a 4 mm cyst at the right mid kidney. Bladder: The urinary bladder is moderately distended. Bilateral ureteral jets are demonstrated. Prevoid bladder volume: Approximately 421 mL Post void bladder volume: Approximately 80 mL (19.1%) Procedure Note Stephanie Coffey MD - 07/24/2022 US KIDNEYS AND BLADDER TECHNIQUE: Kidney Ultrasound. COMPARISON: There is no prior study available for FINDINGS: Right Kidney: Size: 12.5 cm Normal corticomedullary differentiation and cortical thickness. No stonesor hydronephrosis. Left Kidney: Size: 12 point cm Normal corticomedullary differentiation and cortical thickness. No stonesor hydronephrosis. There is a 4 mm cyst at the right mid kidney. Bladder: The urinary bladder is moderately distended. Bilateral ureteraljets are demonstrated. Prevoid bladder volume: Approximately 421 mL Post void bladder volume: Approximately 80 mL (19.1%) IMPRESSION: 1. No hydronephrosis or calculus demonstrated sonographically 2. Post void residual volume of 80 mL Shashank Freedman MD [facility] Final Result documented in this encounter Visit Diagnoses Diagnosis Calculus of kidney- Primary Calculus of kidney documented in this encounter Care Teams Chief Media Officer Relationship Specialty Start Date End Date Stacy Falcon MD PCP - General 11/25/14 04/03/24 Shireen Fay PA [address] [place] [phone] PCP - General Physician Drum Printer 04/04/24 documented as of this encounter Additional Source Comments The information contained in this document represents components of the legal health record. It is not the complete legal health record.[facility]
--- OUTSIDE RECORDS SUMMARY | 2025-04-25 11:15 | XMS_ITS | Clinical Summary ---
Author Organization [facility] Address [address] [place] [id number] Phone Care Team Providers Care Gunite Mixer Name Role Phone Shireen Fay Primary Care Provider [phone] Allergies No known active allergies Medications albuterol 90 mcg/actuation inhaler Inhale 2 puffs into the lungs every 6 (six) hours as needed. 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 Immunizations Immunization Administration Dates Next Due Influenza, Unspecified Formulation 06/08/2012 Pneumococcal polysaccharide PPSV23 06/07/2012(De ferred: Other) Social History Tobacco Use Types Packs/Day Years Used Date Smoking Tobacco: Never Smokeless Tobacco: Never Tobacco Cessation:Counseling Given: Not Answered Alcohol Use Standard Drinks/Week Comments Not Currently [...] PM EDT Sexual Orientation Not on file Last Filed Vital Signs Vital Sign Reading Time Taken Comments Blood Pressure 147/84 05/13/2024 9:19 PM EDT Pulse 45 05/13/2024 9:19 PM EDT Temperature 36.3 C (97.3 F) 05/13/2024 9:19 PM EDT Respiratory Rate 16 05/13/2024 9:19 PM EDT Oxygen Saturation 100% 05/13/2024 9:19 PM EDT Inhaled Oxygen Concentration - - Weight 72.6 kg (160 lb) 05/13/2024 5:37 PM EDT Height 170.2 cm (5' 7 ) 05/13/2024 5:37 PM EDT Body Mass Index 25.06 05/13/2024 5:37 PM EDT Plan of Treatment Health Maintenance Due Date Last Done Comments Adult Td,Tdap Booster 1988 LIPID PANEL 1988 DEPRESSION SCREENING 2000 HEPATITIS C SCREENING 02/16/2006 HIV ONE-TIME SCREENING (18-65 YEARS) 02/16/2006 SCREENING FOR DIABETES 02/16/2023 06/15/2012 INFLUENZA VACCINE (#1) 2025 06/08/2012 COVID-19 VACCINE ( season) 2025 12/13/2020, 12/13/2020, 11/17/2020, Additional history exists SMOKING STATUS SCREENING (Once After 26 Yrs) Completed 12/05/2022 HEPATITIS A VACCINES Aged Out No long er eligible based on patient's age to complete this topic HIB VACCINES Aged Out No longer eligi ble based on patient's age to complete this topic MENINGOCOCCAL VACCINES (ACWY) Aged Out No longer eligible based on patient's age to complete this topic MENINGOCOCCAL VACCINES (B) Aged Out N o longer eligible based on patient's age to complete this topic PNEUMOCOCCAL VACCINES (0-49 years) Aged Out No longer eligible based on patient's age to complete this topic Medical Devices Not on file Insurance [facility] OUT OF STATE O [facility] [employer] OUT OF STATE PPO [employer] OUT OF [facility] OUT OF STATE PPO Care Teams Gunite Mixer Relationship Specialty Start Date End Date Shireen Fay PA [address] [place] [phone] PCP - General Physician [employer] Manager 04/04/24 Additional Source Comments The information contained in this document represents components of the legal health record. It is not the complete legal health record.[facility]
[2025-04-25] MEDS: Fluorescein Sodium STRIP 1 STRIP EYE-LEFT (12:11)
[2025-04-25 12:34] VITALS: BP 144/65; PULSE 52; RESP 18; TEMP -17.7; TEMP 0; O2SAT 98
== END 2025-04-25 12:34 | disposition home or self-care (01) ==
PROVIDERS: Emergency Provider Emergency Medicine
DX: S05.02XA Injury of conjunctiva and corneal abrasion without foreign body, left eye, initial encounter (principal); X58.XXXA Exposure to other specified factors, initial encounter; Y93.89 Activity, other specified; Y92.89 Other specified places as the place of occurrence of the external cause; Y99.8 Other external cause status
CPT/HCPCS: 99283; 99284